=== PATIENT | female | born 1970 | race Caucasian/White ===

== ENCOUNTER → 2024-04-23 06:18 | Day surgery (SDC) | payer OTHER, SELFPAY | LOC: GI 06:18 | PROVIDERS: ATTENDING PHYSICIAN Specialist | DX: Z12.11 Encounter for screening for malignant neoplasm of colon (principal); Z98.0 Intestinal bypass and anastomosis status; K63.89 Other specified diseases of intestine; K57.30 Diverticulosis of large intestine without perforation or abscess without bleeding; Z80.0 Family history of malignant neoplasm of digestive organs; Z86.0101 Personal history of adenomatous and serrated colon polyps | CPT/HCPCS: 45380; 88305 ==

== ENCOUNTER 2024-08-08 17:46 | Emergency (ER) | payer OTHER, SELFPAY ==
[2024-08-08 17:49] VITALS: BP 141/88
[2024-08-08 19:06] VITALS: BMI 32.7
--- NOTE | 2024-08-08 19:41 | ED.GENMED ---
History of Present Illness
General
Chief Complaint: BURN-MINOR
Time Seen by Provider: 08/08/24 19:32
History of Present Illness
History of Present Illness:
Patient presents to the emergency department with burn to her left hand. She grabbed a hot tellez. There is blistering to her fourth digit. No injuries or ashton elsewhere.
Past History
Past History
ED Past Medical History: GERD, HTN and Other (Diverticulitis)
ED Past Surgical History: Bowel resection, Gynecological (Ablation), Urological and Other (Hernia repair)
Social History
Tobacco: Non-smoker
Alcohol: None
Drug: None
Employment: Employed
Family History
Family History: Other
Phy Exam
Physical Exam
Physical Exam:
General: No acute distress
Head: NCAT
Neck, Normal in appearance, no swelling
Respiratory: No Respiratory distress
Abdomen: No distension
Ext: Left hand with ashton to third fourth and fifth digits, superficial. She has a small blister to the fourth digit. It is not circumferential.
Neuro: ALLEN, AOx4
Psych: Normal affect
Skin: Normal color
Course
Vital Signs
Initial and Last Documented VS:
Initial Vital Signs
Temp Pulse Resp BP Pulse Ox
98.7 F 63 18 141/88 99
08/08/24 17:49 08/08/24 17:49 08/08/24 17:49 08/08/24 17:49 08/08/24 17:49
Last Documented Vital Signs
Temp Pulse Resp BP Pulse Ox
98.7 F 50 16 134/83 98
08/08/24 17:49 08/08/24 19:49 08/08/24 19:49 08/08/24 19:49 08/08/24 19:49
*Critical Care Note
Total Time (30-74mins, 75-104mins- exclusive of procedures): Not Applicable
ED Attending Note
ED Attending Note
ED Attending Note:
Superficial ashton to the fingers with small area of partial-thickness burn. Instructed her to keep the blister on and apply bacitracin if this falls off. Pain control with ibuprofen and Tylenol
-
Portions of this chart may have been created with voice recognition software.� Occasional wrong word or��sound alike� substitutions may have occurred due to the inherent limitations of voice recognition software.
Discharge Plan
Departure
Patient Disposition: Home (Routine Discharge)
Date of Disposition: 08/08/24
Time of Disposition: 19:42
Patient with high blood pressure during this ER visit?: Yes
Discharge Problem:
Partial thickness burn of finger
Instructions: Skin Ashton (DC)
Prescriptions:
No Action
acetaminophen [Tylenol Extra Strength] 500 MG tablet
500 mg PO DAILY
hydrochlorothiazide 25 MG tablet
25 mg PO DAILY
loratadine 10 MG tablet
10 mg PO DAILY
escitalopram oxalate 10 MG tablet
10 mg PO DAILY
mometasone-formoterol [Dulera] 1 PUFF HFA aerosol inhaler
2 inhaler inhalation DAILY
fluticasone propionate 1 SPRAY spray,suspension
1 spray intranasal DAILY
Lisinopril
10 mg PO DAILY
metronidazole 500 MG tablet
500 mg PO TID Qty: 30 0RF
ciprofloxacin HCl 500 MG tablet
500 mg PO BID Qty: 20 0RF
sucralfate [Carafate] 1 GM/10 ML suspension
1 gm PO QID Qty: 120 0RF
Rx Instructions:
10mL PO 1 hour before meals and before bed
Referrals:
Maria Dolores Saldana MD [Family Provider] -
Activity Restrictions/Additional Instructions:
Please take ibuprofen 3 times daily with food. Ice for 20 minutes at a time. Keep elevated. If the blister falls off please apply bacitracin ointment to the finger and keep covered.
Interventions
Interventions:
*Risk Screen - Suicide Last Done: 08/08/24 17:51
*General Assessment Last Done: 08/08/24 17:50
*Neglect/Abuse Screening Last Done: 08/08/24 17:50
*ED- Fall Risk Assessment Last Done: 08/08/24 19:06
*ED COVID-19 Vaccine History Last Done: 08/08/24 17:50
*Nursing Disposition Last Done: 08/08/24 19:50
ED-Skin Assessment Last Done: 08/08/24 19:06
Discharge Date and Time
Discharge Date/Time: 08/08/24 19:51
Print Language: CZECH
[2024-08-08 19:49] VITALS: BP 134/83
== END 2024-08-08 19:51 | disposition home or self-care (01) ==
LOC: EMR 17:46
PROVIDERS: EMERGENCY PHYSICIAN Emergency Medicine; FAMILY PHYSICIAN Family Medicine
DX: T23.229A Burn of second degree of unspecified single finger (nail) except thumb, initial encounter (principal); X15.3XXA Contact with hot saucepan or skillet, initial encounter; I10 Essential (primary) hypertension; K21.9 Gastro-esophageal reflux disease without esophagitis
CPT/HCPCS: 99282

== ENCOUNTER 2024-10-27 10:45 | Emergency (ER) | payer OTHER, SELFPAY ==
[2024-10-27 10:50] VITALS: BP 134/93
[2024-10-27 11:03] VITALS: BMI 29.9
--- NOTE | 2024-10-27 11:11 | EDRN ---
[facility] INGRAM in room w/ pt. Wound marked w/ skin pen and dated for redness area.
--- NOTE | 2024-10-27 11:14 | ED.SKININJ ---
HPI-Injury
General
Chief Complaint: Bite
Source: patient
Exam Limitations: none
Time Seen by Provider: 10/27/24 11:05
History of Present Illness-Injury
Initial Injury comments:
53yo left hand dominant female with a history of hypertension, GERD, and asthma presenting for evaluation after a dog bite. Patient was bitten by her dog in the left thumb yesterday afternoon. Dog is up-to-date on rabies vaccinations. She had
some discomfort in her thumb after the bite. She woke up this morning with swelling and redness to her hands which seems to be spreading. Patient was seen by her PCP and was sent immediately to the ED for evaluation. She denies any fevers or
chills. Last Tdap was in 2019. Patient has a history of a cephalosporin allergy although has tolerated penicillins in the past.
Past History
Past History
ED Past Medical History: GERD, HTN and Other (Diverticulitis)
ED Past Surgical History: Bowel resection, Gynecological (Ablation), Urological and Other (Hernia repair)
Social History
Tobacco: Non-smoker
Alcohol: None
Drug: None
Employment: Employed
Family History
Family History: Other
Phy Exam
General Physical Exam
General Presentation: well appearing and no apparent distress
General age: appears stated age
General Skin: warm and dry
General Habitus: normal
General Mental: alert
ENT Exam
ENT Exam: normocephalic
Pulmonary Exam
Pulmonary Exam: no respiratory distress
Neurological Exam
Neurological Exam: alert
[place] Coma Scale
Eye Opening: Spontaneous
Verbal Response: Oriented
Motor Response: Obeys Commands
GCS Total Score: 15
Musculoskeletal Exam
Musculoskeletal Exam: other (L hand: Bite wound noted to the dorsum of the L thumb with some drainage. ROM of IP joint decreased. Erythema/warmth noted to thumb extending to the dorsum of the hand with faint red streaking above the wrist. 2+ radial
pulse.)
Skin Exam
Skin Exam: warm/dry
Psychiatric Exam
Psychiatric Exam: normal mood/affect
Course
Orders/Labs/Results
Orders:
Orders
10/27/24 11:13
0.9% Sodium Chloride 1000 ml [Nss] 1,000 ml IV BOLUS
Ampicillin/Sulbactam 3 G [Unasyn] 3 gm 0.9% Sodium Chloride 100 ml [Nss] 100 ml IV NOW
CR Hand - Left Min 3 Views Urgent
Comment:
Reason For Exam: Dog bite to thumb
10/27/24 11:34
Complete Blood Count/With Diff Urgent
10/27/24 12:29
Comprehensive Metabolic Panel Urgent
10/27/24 13:48
Aluminium Finger Splint Right ONCE
Abnormal Lab Results
10/27/24 10/27/24
11:34 12:29
Absolute Neuts (auto) 7.6 H 10^3/uL
(1.4-6.5)
Absolute Monos (auto) 0.9 H 10^3/uL
(0.1-0.6)
Lymphocytes % 15.0 L %
(20.5-51.1)
Sodium 132 L mmol/L
(135-145)
Chloride 96 L mmol/L
(98-107)
10/27/24 11:34
10/27/24 12:29
Vital Signs
Initial and Last Documented VS:
Initial Vital Signs
Temp Pulse Resp BP Pulse Ox
98.1 F 62 16 134/93 99
10/27/24 10:50 10/27/24 10:50 10/27/24 10:50 10/27/24 10:50 10/27/24 10:50
Last Documented Vital Signs
Temp Pulse Resp BP Pulse Ox
98.1 F 57 16 141/79 98
10/27/24 10:50 10/27/24 13:42 10/27/24 13:42 10/27/24 13:42 10/27/24 13:42
MDM/Problems Addressed
Differential Diagnosis Includes:
53yoF here after a dog bite to her L thumb yesterday afternoon. Now having redness to her hand that is spreading. Sent in by PCP. VSS. She is well appearing in no distress. There is evidence of cellulitis to the hand with faint red streaking above
the wrist. ROM of thumb IP joint decreased. LUE is neurovascularly intact. Differential diagnosis includes but is not limited to: animal bite, cellulitis, abscess
Initial ED plan: Check CBC, CMP, and L hand x-rays. IV Unasyn and fluid bolus.
*Pulse Oximetry
SaO2: 99
Oxygen Mode of Delivery: Room air
*Critical Care Note
Total Time (30-74mins, 75-104mins- exclusive of procedures): Not Applicable
Update Note
Update Note:
Labs overall unremarkable including normal white count. X-rays are negative for fractures. Offered admission for IV antibiotics although patient prefers outpatient management at this time as she has no one to take care of her dog. I think this is
reasonable as she has not received any antibiotics as of yet. Dose of IV Unasyn given in ED and she was started on a course of Augmentin. She has a history of C.diff after taking Augmentin in the past and was given a prescription for vancomycin
for prophylaxis. Advised warm soapy soaks TID. Finger splint applied. Stressed importance of close outpatient f/u with hand surgery and strict ED return precautions reviewed. Patient discharged in stable condition.
ED Attending Note
-
Portions of this chart may have been created with voice recognition software.� Occasional wrong word or��sound alike� substitutions may have occurred due to the inherent limitations of voice recognition software.
Discharge Plan
Departure
Patient Disposition: Home (Routine Discharge)
Date of Disposition: 10/27/24
Time of Disposition: 13:46
Patient with high blood pressure during this ER visit?: Yes
Discharge Problem:
Dog bite of right thumb with infection, Hx of Clostridium difficile infection
Instructions: Animal Bites (DC), Cellulitis (Skin Infection), Child (DC)
Prescriptions:
New
amoxicillin-pot clavulanate 875-125 mg tablet
1 tab PO BID Qty: 14 0RF
vancomycin 125 mg capsule
125 mg PO DAILY Qty: 10 0RF
No Action
hydrochlorothiazide 25 MG tablet
25 mg PO DAILY
loratadine 10 MG tablet
10 mg PO DAILY
lisinopril 10 mg Tablet
10 mg PO DAILY
fluticasone propionate 1 SPRAY spray,suspension
1 spray intranasal DAILY
polyethylene glycol 3350 [Miralax] 17 gram Powder In Packet
17 g PO DAILY
potassium chloride 10 mEq Tablet Extended Release
10 meq PO DAILY
lorazepam 0.5 mg Tablet
0.5 mg PO DAILYPRN PRN (Reason: anxiety)
lansoprazole 30 mg Capsule,Delayed Release(Dr/Ec)
30 mg PO DAILY
fluticasone propion-salmeterol [Advair Diskus] 100-50 mcg/dose Blister With Device
1 inh INHALATION R BID
Citrucel Fiber Laxative Powder In Packet
1 ea PO DAILY
Referrals:
Maria Dolores Saldana MD [Family Provider, Family Practice]
Jesse Zhao MD [Active, Orthopedics]
Nahid Walters MD [Active, Orthopedics]
Activity Restrictions/Additional Instructions:
Take antibiotics as prescribed. A prescription for vancomycin was also sent to your pharmacy for C.diff prevention.
Do warm soap water soaks 3x daily.
Please call today to schedule a follow-up with hand surgery within 48 hours.
Return to the ER with any worsening symptoms including spreading redness, fevers, or chills.
Interventions
Interventions:
*General Assessment Last Done: 10/27/24 11:03
*ED- Fall Risk Assessment Last Done: 10/27/24 11:03
*ED COVID-19 Vaccine History Last Done: 10/27/24 11:03
ED-Skin Assessment Last Done: 10/27/24 11:05
Discharge Date and Time
Print Language: WELSH
[2024-10-27 11:58] LABS: % Basophils 0.6 % (0-2); % Eosinophils 1.5 % (0-6); % Immature Granulocytes 0.4 % (0-0.5); % Monocytes 8.8 % (1.7-9.3); % Neutrophils 73.7 % (42.2-75.2); Absolute Basophils 0.1 10^3/uL (0-0.2); Absolute Eosinophils 0.2 10^3/uL (0-0.7); Absolute Lymphocytes 1.6 10^3/uL (1.2-3.4); Absolute Monocytes 0.9 10^3/uL (0.1-0.6); Absolute Neutrophils 7.6 10^3/uL (1.4-6.5); Hemoglobin 13.9 g/dL (12.0-16.0); Mean Corp Hgb Conc. 34.8 g/dL (33.0-37.0); Mean Corpuscular Hgb 29.3 pg (27.0-31.0); Mean Corpuscular Volume 84.4 fL (81.0-99.0); Nucleated Red Blood Cells % 0 %; Platelet Count 341 10^3/uL (130-400); Red Blood Cell Count 4.74 10^6/uL (4.20-5.40); Red Cell Dist. Width 12.8 % (11.5-14.5); White Blood Cell Count 10.3 10^3/uL (4.8-10.8)
[2024-10-27] MEDS: NSS 1000 IV (12:15)
[2024-10-27] MEDS: UNASYN IV (12:32)
[2024-10-27 13:30] LABS: ALT (SGPT) 18 U/L (0-35); AST (SGOT) 23 U/L (14-36); Albumin 4.5 g/dl (3.5-5.0); Alkaline Phosphatase 60 U/L (38-126); Blood Urea Nitrogen 14 mg/dl (7-17); Calcium 9.9 mg/dl (8.4-10.2); Carbon Dioxide 27 mmol/L (22-30); Chloride 96 mmol/L (98-107); Estimated Creatinine Clearance 81 ml/min; Glucose 83 mg/dl (70-99); Potassium 3.9 mmol/L (3.5-5.1); Sodium 132 mmol/L (135-145); Total Bilirubin 0.8 mg/dl (0.2-1.3); Total Protein 7.4 g/dl (6.3-8.2); eGFR > 60.00
[2024-10-27 13:42] VITALS: BP 141/79
--- NOTE | 2024-10-27 13:44 | EDRN ---
[facility] INGRAM in room w/ pt at this time.
== END 2024-10-27 14:25 | disposition home or self-care (01) ==
LOC: EMR 10:45
PROVIDERS: Physician Assistant; EMERGENCY PHYSICIAN Emergency Medicine; FAMILY PHYSICIAN Family Medicine
DX: S61.051A Open bite of right thumb without damage to nail, initial encounter (principal); W54.0XXA Bitten by dog, initial encounter; I10 Essential (primary) hypertension; K21.9 Gastro-esophageal reflux disease without esophagitis; J45.909 Unspecified asthma, uncomplicated
CPT/HCPCS: 99283; 73130; 80053; 85025

== ENCOUNTER → 2024-12-02 15:19 | Outpatient (REF) | payer OTHER, SELFPAY | LOC: RAD 15:19 | PROVIDERS: ATTENDING PHYSICIAN Otolaryngology Facial Plastic Surgery; FAMILY PHYSICIAN Family Medicine | DX: R04.0 Epistaxis (principal); J34.3 Hypertrophy of nasal turbinates; J30.1 Allergic rhinitis due to pollen | CPT/HCPCS: 70486 ==

== ENCOUNTER 2024-12-10 06:30 | Day surgery (SDC) | payer OTHER, SELFPAY | END 2024-12-10 14:23 | disposition home or self-care (01) | LOC: GI 06:30 | PROVIDERS: ATTENDING PHYSICIAN Specialist | DX: K31.7 Polyp of stomach and duodenum (principal); R12 Heartburn; K21.00 Gastro-esophageal reflux disease with esophagitis, without bleeding; K22.89 Other specified disease of esophagus | CPT/HCPCS: 43239; 88305 ==

== ENCOUNTER → 2025-01-28 07:11 | Outpatient (REF) | payer OTHER, SELFPAY ==
[2025-01-28 08:02] LABS: Hematocrit 44.9 % (37.0-47.0); Hemoglobin 15.2 g/dL (12.0-16.0); Mean Corp Hgb Conc. 33.9 g/dL (33.0-37.0); Mean Corpuscular Volume 84.6 fL (81.0-99.0); Nucleated Red Blood Cells % 0 %; Platelet Count 342 10^3/uL (130-400); Red Cell Dist. Width 12.6 % (11.5-14.5)
[2025-01-28 08:37] LABS: ALT (SGPT) 22 U/L (0-35); AST (SGOT) 26 U/L (14-36); Albumin 4.8 g/dl (3.5-5.0); Alkaline Phosphatase 67 U/L (38-126); Blood Urea Nitrogen 19 mg/dl (7-17); Calcium 10.3 mg/dl (8.4-10.2); Carbon Dioxide 32 mmol/L (22-30); Chloride 97 mmol/L (98-107); Glucose 108 mg/dl (70-99); Potassium 4.6 mmol/L (3.5-5.1); Sodium 136 mmol/L (135-145); Total Protein 7.6 g/dl (6.3-8.2); eGFR > 60.00
== END ==
LOC: REG 07:11
PROVIDERS: ATTENDING PHYSICIAN Otolaryngology Facial Plastic Surgery; FAMILY PHYSICIAN Family Medicine
DX: J34.2 Deviated nasal septum (principal); J34.3 Hypertrophy of nasal turbinates; R04.0 Epistaxis; J32.0 Chronic maxillary sinusitis; J30.1 Allergic rhinitis due to pollen
CPT/HCPCS: 36415; 80053; 85025; 93005

== ENCOUNTER → 2025-02-16 08:05 | Outpatient (REF) | payer OTHER, SELFPAY | LOC: HWRCS 08:05 | PROVIDERS: ATTENDING PHYSICIAN Internal Medicine Cardiovascular Disease; FAMILY PHYSICIAN Family Medicine | DX: Z01.810 Encounter for preprocedural cardiovascular examination (principal); R07.89 Other chest pain | CPT/HCPCS: 78452; 93017; A9500 ==

== ENCOUNTER → 2025-02-17 07:13 | Outpatient (REF) | payer OTHER, SELFPAY | LOC: RCS 07:13 | PROVIDERS: ATTENDING PHYSICIAN Internal Medicine Cardiovascular Disease; FAMILY PHYSICIAN Family Medicine | DX: Z01.810 Encounter for preprocedural cardiovascular examination (principal); R07.89 Other chest pain | CPT/HCPCS: 93306 ==